=== PATIENT | male | born 1980 | race Asian ===

== ENCOUNTER 2021-09-25 00:55 | Emergency (ER) | payer OTHER ==
[2021-09-25 01:05] VITALS: BMI 27.3
[2021-09-25] MEDS ORDERED: ACETAMINOPHEN 1000 MG/100 ML BAG IVPB ONE (01:18)
[2021-09-25] MEDS ORDERED: ACETAMINOPHEN INJECTION 100 ML IVPB ONE (01:40)
[2021-09-25 01:42] LABS: BASO % 1.4 % (0-2.0); EOS % 9.2 % (0-4.5); HEMATOCRIT 44.7 % (35.4-49); HEMOGLOBIN 15.4 GM/dL (11.7-16.9); LYMPH % 47.4 % (8-40); MCH 30.1 pg (25.7-33.7); MCHC 34.5 g/dl (32.0-35.9); MEAN CELL VOLUME 87.4 fl (80-96); MEAN PLT VOLUME 9.6 fl (7.5-11.1); MONO % 12.4 % (3.8-10.2); NEUT % 29.6 % (42.8-82.8); PLATELET COUNT 138 10^3/uL (134-434); RBC 5.12 M/mm3 (4.00-5.60); RDW 13.6 % (11.9-15.9); WHITE BLOOD COUNT 4.7 K/mm3 (4.0-10.0)
[2021-09-25 03:37] LABS: CHLORIDE 109 mmol/L (98-107); SODIUM 140 mmol/L (136-145)
[2021-09-25 03:39] LABS: CALCIUM 8.4 mg/dL (8.5-10.1)
[2021-09-25 03:40] LABS: ALBUMIN 3.7 g/dl (3.4-5.0); ANION GAP 7 MMOL/L (8-16); BLOOD UREA NITROGEN 14.6 mg/dL (7-18); CO2 24 mmol/L (21-32); GLUCOSE,RANDOM 123 mg/dL (74-106); MAGNESIUM 1.8 mg/dL (1.8-2.4)
[2021-09-25 03:43] LABS: CREATININE 0.7 mg/dL (0.55-1.3); SGOT/AST 35 U/L (15-37); SGPT/ALT 65 U/L (13-61)
[2021-09-25 03:44] LABS: BILIRUBIN,TOTAL 0.3 mg/dL (0.2-1)
[2021-09-25 03:46] LABS: ALK PHOS 119 U/L (45-117)
[2021-09-25] MEDS ORDERED: LIDOCAINE 5% TOPICAL PATCH TP ONE (04:32)
[2021-09-25] MEDS ORDERED: METHOCARBAMOL 500 MG TABLET PO ONE (04:32)
[2021-09-25] MEDS ORDERED: METHOCARBAMOL 500 MG TABLET ONE (04:36)
[2021-09-25] MEDS ORDERED: LIDOCAINE 5% TOPICAL PATCH ONE (04:36)
[2021-09-25 06:11] VITALS: BP 120/79; PULSE 65; TEMP 97.4
[2021-09-25] MEDS ORDERED: LIDOCAINE PATCH REMOVAL MC SCH (22:00)
== END 2021-09-25 06:12 | disposition home or self-care (01) ==
LOC: JER 00:55
PROC: 3E0333Z Introduction of Anti-inflammatory into Peripheral Vein, Percutaneous Approach (ICD-10-PCS; principal; 2021-09-25)
DX: M79.601 Pain in right arm (principal)
CPT/HCPCS: 36415; 73060-TC-RT-FY; 80053; 82550; 83735; 84443; 84484; 85025; 93005; 93010; 96374; 99285-25; J0131